=== PATIENT | male | born 1965 | race American Indian/Alaskan Native ===

== ENCOUNTER 2017-03-19 08:58 | Emergency (ER) | payer BC ==
--- NOTE | 2017-03-19 09:49 | EDM.PDOC ---
ED HPI GENERAL MEDICAL PROBLEM - General Chief Complaint: Lower Extremity Injury/Pain Stated Complaint: SLIPPED, HURT RT ANKLE Time Seen by Provider: 03/19/17 09:43 Source of Information: Reports: Patient, Family, RN, RN Notes Reviewed History Limitations: Reports: No Limitations - History of Present Illness INITIAL COMMENTS - FREE TEXT/NARRATIVE: Pt presents to the ER with c/o pain to the right lower leg and ankle. He states he [place] ice [place]. Pt states he has pain to the right distal catherine area as well as the ankle, he states his ankle "flopped around". Patient denies any other injuries, hitting his head, or losing consciousness. He states he has had a previous knee replacement on the right, but feels he did not twist or injure the knee, as he has no pain in the knee. Onset: Today, Sudden Location: Reports: Lower Extremity, Right Quality: Reports: Throbbing Severity: Moderate Improves with: Reports: None Worsens with: Reports: Movement Associated Symptoms: Reports: No Other Symptoms Right Lower Leg Pain Score (Numeric/FACES): 10 - Related Data Allergies Allergy/AdvReac Type Severity Reaction Status Date / Time aspirin Allergy welts and Verified 03/19/17 09:15 swell up bee venom protein (honey bee) Allergy swell up Verified 03/19/17 09:15 constast Allergy Hives Uncoded 03/19/17 09:15 msg Allergy Hives Uncoded 03/19/17 09:15 Home Meds: Home Meds ALPRAZolam [Alprazolam] 1 tab PO ASDIRECTED PRN 03/19/17 [History] Albuterol Sulfate [Ventolin Hfa] 2 puff INH ASDIRECTED PRN 03/19/17 [History] Albuterol [Proventil Neb Soln] 1 unit INH ASDIRECTED PRN 03/19/17 [History] Carvedilol 25 mg PO BID 03/19/17 [History] Clopidogrel [Plavix] 1 tab PO DAILY 03/19/17 [History] Lisinopril 1 tab PO DAILY 03/19/17 [History] NIFEdipine [Procardia XL] 1 tab PO BEDTIME 03/19/17 [History] Nitroglycerin [Nitrostat] 1 tab SL ASDIRECTED PRN 03/19/17 [History] QUEtiapine Fumarate [Seroquel] 1 tab PO BEDTIME 03/19/17 [History] Simvastatin [Zocor] 1 tab PO BEDTIME 03/19/17 [History] Temazepam 1 cap PO BEDTIME PRN 03/19/17 [History] cloNIDine [Catapres] 1 tab PO DAILY 03/19/17 [History] fentaNYL [Duragesic] 1 patch TOP ASDIRECTED 03/19/17 [History] oxyCODONE HCl/Acetaminophen [Endocet 10-325 mg Tablet] 1 tab PO ASDIRECTED PRN 03/19/17 [History] tiZANidine [Zanaflex] 1 tab PO BEDTIME 03/19/17 [History] Past Medical History HEENT History: Reports: Impaired Vision Other HEENT History: wears glasses Cardiovascular History: Reports: CAD, Hypertension, Stents Respiratory History: Reports: Asthma, Pneumonia, Recurrent, Other (See Below) Other Respiratory History: pollen allergies Gastrointestinal History: Reports: None Genitourinary History: Reports: None Musculoskeletal History: Reports: Back Pain, Chronic Neurological History: Reports: None Psychiatric History: Reports: None, Anxiety, Depression Endocrine/Metabolic History: Reports: None Hematologic History: Reports: None Immunologic History: Reports: None Oncologic (Cancer) History: Reports: None Dermatologic History: Reports: None - Past Surgical History Cardiovascular Surgical History: Reports: Coronary Artery Stent GI Surgical History: Reports: Appendectomy Musculoskeletal Surgical History: Reports: Knee Replacement, Other (See Below) Other Musculoskeletal Surgeries/Procedures:: back surgery Review of Systems - Review of Systems Review Of Systems: ROS reveals no pertinent complaints other than HPI. ED EXAM, GENERAL - Physical Exam Exam: See Below Exam Limited By: No Limitations General Appearance: Alert, WD/WN, No Apparent Distress Eye Exam: Bilateral Eye: Normal Inspection Ears: Normal External Exam, Hearing Grossly Normal Nose: Normal Inspection Throat/Mouth: Normal Inspection, Normal Voice, No Airway Compromise Head: Atraumatic, Normocephalic Neck: Normal Inspection, Supple, Non-Tender, Full Range of Motion Respiratory/Chest: No Respiratory Distress, Lungs Clear, Normal Breath Sounds, No Accessory Muscle Use, Chest Non-Tender Cardiovascular: Normal Peripheral Pulses, Regular Rate, Rhythm, No Gallop, No JVD, No Murmur, No Rub, Bradycardia Peripheral Pulses: 2+: Radial (L), Radial (R), Dorsalis Pedis (R) GI/Abdominal: Normal Bowel Sounds, Soft, Non-Tender (Male) Exam: Deferred Rectal (Males) Exam: Deferred Back Exam: Normal Inspection, Full Range of Motion Extremities: Other (right ankle swollen, becoming ecchymotic, decreased range of motion, tender to touch) Neurological: Alert, Oriented, Normal Cognition, No Motor/Sensory Deficits Psychiatric: Normal Affect, Normal Mood Skin Exam: Warm, Dry, Intact, Normal Color, No Rash Lymphatic: No Adenopathy ED TRAUMA EXTREMITY PROCEDURES - Splinting Right Lower Extremity Splint Site: Right lower extremity Pre-Procedure NV Status: Normal Post-Procedure NV Status: Normal Splint Material: Fiberglass Splint Design: Other (long leg splint) Applied & Form Fitted By: Provider, Nurse Provider Post-Splint Application NV Check: NV Status Normal, Good Position Complications: No Course - Vital Signs Last Recorded V/S: Last Vital Signs Temp 99.2 F 03/19/17 09:10 Pulse 52 L 03/19/17 09:10 Resp 18 03/19/17 09:10 BP 148/83 H 03/19/17 09:10 Pulse Ox 100 03/19/17 09:10 - Orders/Labs/Meds Orders: Active Orders 24 hr Category Date Time Status Peripheral IV Care [RC] . DIRECTED Care 03/19/17 10:16 Active Ankle Min 3V Rt [CR] Urgent Exams 03/19/17 09:28 Ordered Tibia Fibula Rt [CR] Urgent Exams 03/19/17 09:28 Taken Sodium Chloride 0.9% [Saline Flush] Med 03/19/17 10:15 Active 10 ml FLUSH ASDIRECTED PRN Peripheral IV Insertion Adult [OM.PC] Stat Oth 03/19/17 10:15 Ordered Medication Orders Sodium Chloride (Saline Flush) 10 ml FLUSH ASDIRECTED PRN PRN Reason: Keep Vein Open Meds: Medications Generic Name Dose Route Start Last Admin Trade Name Freq PRN Reason Stop Dose Admin Sodium Chloride 10 ml 03/19/17 10:15 Saline Flush FLUSH ASDIRECTED PRN Keep Vein Open Discontinued Medications Generic Name Dose Route Start Last Admin Trade Name Freq PRN Reason Stop Dose Admin Hydromorphone HCl 1 mg 03/19/17 10:15 Dilaudid IVPUSH 03/19/17 10:16 ONETIME ONE - Radiology Interpretation Free Text/Narrative:: Right tib/fib: Right ankle: See rad report Departure - Departure Time of Disposition: 10:21 Disposition: DC/Tfer to Acute Hospital 02 Condition: Good Clinical Impression: Closed fracture of tibia AND fibula - Discharge Information Forms: ED Department Discharge, Interfacility Transfer ANGI - My Orders Last 24 Hours: My Active Orders 03/19/17 09:28 Ankle Min 3V Rt [CR] Urgent Tibia Fibula Rt [CR] Urgent 03/19/17 10:15 Sodium Chloride 0.9% [Saline Flush] 10 ml FLUSH ASDIRECTED PRN Peripheral IV Insertion Adult [OM.PC] Stat 03/19/17 10:16 Peripheral IV Care [RC] . DIRECTED - Assessment/Plan Last 24 Hours: My Active Orders 03/19/17 09:28 Ankle Min 3V Rt [CR] Urgent Tibia Fibula Rt [CR] Urgent 03/19/17 10:15 Sodium Chloride 0.9% [Saline Flush] 10 ml FLUSH ASDIRECTED PRN Peripheral IV Insertion Adult [OM.PC] Stat 03/19/17 10:16 Peripheral IV Care [RC] . DIRECTED
[2017-03-19] MEDS ORDERED: HYDROmorphone 1 MG/ML Syringe IVPUSH ONE (10:15)
[2017-03-19] MEDS ORDERED: Sodium Chloride 0.9% 10 ML Syringe FLUSH PRN (10:15)
== END 2017-03-19 10:58 ==
LOC: DL.ED 08:58
DX: S82.301A Unspecified fracture of lower end of right tibia, initial encounter for closed fracture (principal); S82.831A Other fracture of upper and lower end of right fibula, initial encounter for closed fracture; I10 Essential (primary) hypertension; I25.10 Atherosclerotic heart disease of native coronary artery without angina pectoris; J45.909 Unspecified asthma, uncomplicated; F32.9 Major depressive disorder, single episode, unspecified; Z79.02 Long term (current) use of antithrombotics/antiplatelets; Z96.651 Presence of right artificial knee joint; Z79.899 Other long term (current) drug therapy; Z88.6 Allergy status to analgesic agent; Z91.030 Bee allergy status; Z91.041 Radiographic dye allergy status; W00.0XXA Fall on same level due to ice and snow, initial encounter; Y92.22 Religious institution as the place of occurrence of the external cause
CPT/HCPCS: 29505; 73590; 96374; 99285; J1170; J7050